=== PATIENT | female | born 1955 | race Two or more races ===

== ENCOUNTER 2018-06-13 23:48 | Emergency (ER) | payer OTHER ==
[2018-06-14 00:56] LABS: ADD MAN DIFF? NO
[2018-06-14 00:59] LABS: WHITE BLOOD COUNT 12.5 10^3/ul (4.8-10.8)
[2018-06-14 00:59] LABS: BASOPHIL # 0.1 10^3/ul (0.0-0.1); BASOPHILS % 0.6 % (0.0-2.0); EOSINOPHILS # 0.2 10^3/ul (0.0-0.5); EOSINOPHILS % 1.4 % (0.0-7.0); HEMOGLOBIN 12.3 g/dl (12.0-16.0); LYMPHOCYTES # 3.7 10^3/ul (0.8-2.9); LYMPHOCYTES % 29.6 % (15.0-51.0); MEAN CORPUSCULAR HEMOGLOBIN 30.8 pg (29.0-33.0); MEAN CORPUSCULAR HGB CONC 34.2 g/dl (32.0-37.0); MONOCYTE # 0.7 10^3/ul (0.3-0.9); MONOCYTES % 5.4 % (0.0-11.0); NEUTROPHIL # 7.8 10^3/ul (1.6-7.5); NEUTROPHILS % 62.7 % (39.0-77.0); PLATELET COUNT 299 10^3/UL (140-415); RED CELL DISTRIBUTION WIDTH 12.8 % (11.5-14.5)
[2018-06-14] MEDS: OXYMETAZOLINE 0.05% 15 ML NAS SPRAY NASAL (01:28)
== END 2018-06-14 01:48 | disposition home or self-care (01) ==
LOC: E/R 23:48
DX: R04.0 Epistaxis (principal)
CPT/HCPCS: 85025; 99283